=== PATIENT | female | born 1990 | race Caucasian/White ===

== ENCOUNTER → 2016-07-03 | Day surgery (SDC) | payer OTHER ==
[2016-07-02 17:37] VITALS: BMI 19.8
[~2016-07-03] VITALS: Ht 157.5 cm; Wt 48.4 kg
[2016-07-03] VITALS (9 sets, daily range): BP systolic 110–118; BP diastolic 54–77; PULSE 54–87; RESP 11–25; Ht 157.5 cm; Wt 48.4 kg
[~2016-07-03] MED LIST: ADDE30 PO; BUPIVACAINE 0.5% (SDV) 30 ML INJ ONE; CEFAZOLIN 1 GM INJ ONE; CEFAZOLIN 1 GM/50 ML (PMX) 50 ML IVPB SCH; DEXAMETHASONE 4 MG/ML 1 ML INJ ONE; DIPHENHYDRAMINE 50 MG INJ IV PRN; FENTAnyl 50 MCG/ML VIAL ONE; GELATIN SIZE 100 SPONGE ONE; GLYCOPYRROLATE 1 MG INJ ONE; HYDROCODONE/APAP (5/325) TAB PO PRN; HYDROmorphONE (0.2 MG/ML) 10ML SYG IV PRN; LACTATED RINGER'S 1,000 ML IV SCH; LIDOCAINE 1% (MDV) 20 ML INJ ONE; LIDOCAINE 1% (STERILE-PAK) 30 ML INJ ONE; LIDOCAINE 2% (SDV) 5 ML INJ ONE; MEPERIDINE 25 MG INJ IV PRN; METOCLOPRAMIDE 10 MG INJ IV PRN; NEOSTIGMINE 3 MG/3 ML SYRINGE ONE; ONDANSETRON 4 MG INJ IV PRN; ONDANSETRON 4 MG INJ ONE; POLYMYXIN/BACITRACIN 1L IRRIG ONE; PROPOFOL 20 ML ONE; PROPOFOL 200 MG INJ ONE; ROCURONIUM 50 MG INJ ONE; SUCCINYLCHOLINE CHLORIDE 100 MG/5 ML SYG IV ONE; THROMBIN 5000 UNIT VIAL ONE
--- NOTE | 2016-07-03 17:51 | HPN ---
Date/Time of Note Date/Time of Note DATE: 07/03/16 TIME: 17:50 Interval H&P Admission Note Pt. seen H&P reviewed: No system changes BRANDON COX July 03, 2016 17:51
[2016-07-03] MEDS: FENTAnyl 50 MCG/ML VIAL IV PRN ×3 (20:28→21:04)
--- NOTE | 2016-07-03 23:13 | OPR ---
DATE OF OPERATION: 07/03/2016 SURGEON: Dr. Brandon Cordova. ANESTHESIA: General. PREOPERATIVE DIAGNOSIS: Right scaphoid waist nonunion. POSTOPERATIVE DIAGNOSIS: Right scaphoid waist nonunion. PROCEDURE: 1. Open reduction and internal fixation of right scaphoid waist fracture with debridement of nonuni on site and placement of bone autograft. 2. [place] of bone autograft from the right distal radius. 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 INDICATION FOR PROCEDURE: A 25-year-old female with longstanding right wrist pain. She was diagnos ed with scaphoid fracture and immobilized for several months but came to me in clinic almost 6 month s after her injury with continued pain in the right wrist. X-ray imaging showed scaphoid nonunion. I discussed the options with the patient. Given the persistent pain the patient elected to proceed with surgical intervention, understanding the risks and benefits. DESCRIPTION OF PROCEDURE: The patient was seen in the preoperative area and all further questions w ere answered. Again, she gave informed consent, understanding the risks and benefits. She was take n to the operative suite and placed in supine position. She was placed under general anesthesia and Ancef 2 grams given. Right upper extremity prepped with ChloraPrep stick and draped in the usual s terile fashion. Esmarch bandage was used to exsanguinate the extremity and tourniquet inflated to 2 50 mmHg. A longitudinal incision over the scaphoid was utilized with sharp dissection carried down through skin and subcutaneous tissue. The EPL sheath was incised and the EPL tendon was retracted r adially. The second extensor compartment was incised and retracted radially as well. The joint cap reyes was incised longitudinally over the scaphoid and the proximal pole of the scaphoid was visualiz ed. An Acumed mini guidewire was placed down the center of the scaphoid, and x-ray imaging confirme d center axis positioning of the guidewire. An additional Acumed guidewire was placed parallel to t his as a derotational pin. The fracture site was visualized at the scaphoid waist, but it was some of a proximal waist fracture, and the fracture nonunion site was sharply debrided with knife and for ceps, removing all fibrous tissue. The edges of the proximal and distal fracture ends were curetted with a large curette in order to get to good cancellous bone. After all the fibrous tissue was rem ivette, attention was turned to harvesting the bone graft from the distal radius. A curet was used to enter the distal radius at the level of Jah's tubercle, and a large curet was used to harvest a generous amount of cancellous bone graft from the distal radius bone graft site. This was brought i nto the fracture site and after copious irrigation, the bone graft was placed into the fracture site . The bone was packed generously filling the void, and an Acumed headless compression screw was use d to compress the fracture site, and the total length of the screw measured 16 mm. Please note that this was the maximum length screw that I felt it was safe, given the patient's anatomy and tried to get maximal length from the screw, but given her anatomy, I think 16 mm was the safest choice. The screw provided excellent compression across the fracture site, and the fracture was quite stable. The derotational screw was providing additional stability, and I chose to leave this in and cut it s hort outside the skin for removal in clinic at a future date. The wrist capsule was closed with 3-0 Ethibond, and skin closed with 3-0 nylon. Xeroform was placed over the wounds and pin cap placed o chuy the pin. Sterile gauze was placed followed by Webril and a short arm thumb spica splint. Tourn iquet deflated after 74 minutes and patient was awakened from anesthesia. She was taken the postope rative suite in stable condition and tolerated procedure well without complication. SPECIMENS: None. ESTIMATED BLOOD LOSS: 5 mL. COUNTS: Sponge, instrument and needle counts correct. TOURNIQUET TIME: 74 minutes. FLUOROSCOPIC IMAGES: 11. CONDITION ON DISCHARGE: Stable. Dictated By: BRANDON BARLOW/MERY Conf#: [id number] DID#: [id number]
--- NOTE | 2016-07-04 12:11 | RADRPT ---
PROCEDURE: Intraoperative imaging of the right wrist with fluoroscopy. CLINICAL INDICATION: Right wrist pain. Intraoperative. TECHNIQUE: 5 images of the right wrist were obtained in the operating room with an image intensifi er. No radiologist was in attendance. 23 seconds of fluoroscopy time was used. COMPARISON: No prior study is available for comparison. FINDINGS: Images demonstrate open reduction and internal fixation of the fracture of the waist of the scaphoid with a pin and a cannulated screw. IMPRESSION: 1. Intraoperative imaging of the right wrist. RPTAT: QQ .Michael Campbell MD, MD Date Time Electronically viewed and signed by .Michael Campbell MD, on 07/04/2016 12:11 .R/
== END | disposition home or self-care (01) ==
LOC: SDS 16:26
PROVIDERS: ATTEND Orthopaedic Surgery Hand Surgery
DX: S62.001K Unspecified fracture of navicular [scaphoid] bone of right wrist, subsequent encounter for fracture with nonunion (principal); X58.XXXD Exposure to other specified factors, subsequent encounter
CPT/HCPCS: 25628; 73110; 84703; J0330; J0690; J1170; J2175; J2405; J2710; J3010; Z7512; Z7610; J1100